=== PATIENT | female | born 1985 | race Caucasian/White ===

== ENCOUNTER 2024-11-02 17:02 | Emergency (ER) | payer MEDICAID, SELFPAY ==
[2024-11-02 17:04] VITALS: BP 109/72; PULSE 87; RESP 18; TEMP 36.7; O2SAT 96; BMI 27.6
== END 2024-11-02 19:30 | disposition left against medical advice (07) ==
LOC: ED 19:33
PROVIDERS: PCP Family Medicine
DX: Z53.21 Procedure and treatment not carried out due to patient leaving prior to being seen by health care provider (principal)